=== PATIENT | female | born 1955 | race Caucasian/White ===

== ENCOUNTER → 2018-11-19 | Outpatient (CLI) | payer OTHER | END | disposition home or self-care (01) | LOC: LAB SHORT 19:15 → LAB 19:15 | PROVIDERS: Nurse Practitioner | DX: Z01.419 Encounter for gynecological examination (general) (routine) without abnormal findings (principal) | CPT/HCPCS: G0145 ==

== ENCOUNTER → 2018-12-02 | Outpatient (CLI) | payer OTHER | END | disposition home or self-care (01) | LOC: LAB SHORT 10:54 → PLD 10:54 | DX: L81.4 Other melanin hyperpigmentation (principal); L81.8 Other specified disorders of pigmentation | CPT/HCPCS: 88305 ==

== ENCOUNTER 2021-06-21 12:03 | Day surgery (SDC) | payer MEDICARE, OTHER ==
[2021-06-21] MEDS ORDERED: AMLO5 PO (12:56)
[2021-06-21] MEDS ORDERED: ASCO500 PO (12:56)
[2021-06-21] MEDS ORDERED: ELIQUIS5 M2 PO (12:56)
[2021-06-21] MEDS ORDERED: THERA-D2000 UNIT PO (12:57)
[2021-06-21] MEDS ORDERED: METO50ER PO (12:57)
[2021-06-21] MEDS ORDERED: HYDCHL25 PO (12:57)
[2021-06-21] MEDS ORDERED: EUTHYROX125 MCG PO (12:57)
[2021-06-21] MEDS ORDERED: VITAMIN B122500 MC1 PO (12:58)
[2021-06-21] MEDS ORDERED: ZINC15 PO (12:58)
[2021-06-21] MEDS ORDERED: TURMERIC500 M2 (12:58)
--- NOTE | 2021-06-21 13:15 | NUR ---
SEE PAPER MAR FOR MEDICATIONS GIVEN, AND PAPER SHEET FOR VS.
--- NOTE | 2021-06-21 14:41 | NUR ---
PT AOX4, DENIES ANY CP. PT REMAINS IN SINUS KARLA. PT STATES HER UNDERSTANDING OF DC AND SITE CARE INSTRUCTIONS AND DENIES ANY QUESTIONS OR CONCERNS PRIOR TO DC. IV DCD WITH CATH INTACT. EKG COMPLETED. PT TAKEN TO EXIT VIA WHEELCHAIR WHERE DAUGHTER WAS WAITING WITH CAR.
== END 2021-06-21 14:30 | disposition home or self-care (01) ==
LOC: MHTC 12:03
DX: I48.91 Unspecified atrial fibrillation (principal); I10 Essential (primary) hypertension; E78.5 Hyperlipidemia, unspecified; Z86.73 Personal history of transient ischemic attack (TIA), and cerebral infarction without residual deficits; E03.9 Hypothyroidism, unspecified; E66.9 Obesity, unspecified; Z68.30 Body mass index [BMI] 30.0-30.9, adult; Z79.01 Long term (current) use of anticoagulants
CPT/HCPCS: 92960; 93005; 93010; J2704; J7030

== ENCOUNTER 2021-07-26 08:33 | Day surgery (SDC) | payer MEDICARE, OTHER ==
[~2021-07-26] VITALS: Ht 162.6 cm; Wt 100.9 kg
[~2021-07-26 08:33] MED LIST: AMLO5 PO; ASCO500 PO; ELIQUIS5 M2 PO; EUTHYROX125 MCG PO; HYDCHL25 PO; METO50ER PO; THERA-D2000 UNIT PO; TURMERIC500 M2; VITAMIN B122500 MC1 PO; ZINC15 PO
[2021-07-26] MEDS ORDERED: DILT120 PO (08:54)
[2021-07-26] MEDS ORDERED: B COMPLEX WITH1 EACH PO (08:54)
--- NOTE | 2021-07-26 09:10 | NUR ---
DR LISA HERE WITH PT, GOING OVER CONSENTS
[2021-07-26] MEDS ORDERED: Flecainide Acet50 MG PO (09:34)
[2021-07-26] MEDS ORDERED: AMLO5 PO (09:34)
--- NOTE | 2021-07-26 10:22 | NUR ---
PT ALERT AND ORIENTED. TALKING WITH STAFF. REPEAT EKG DONE. FLECAINIDE 50 MG GIVEN TO PT. DISCHARGE INSTRUCTIONS REVIEWED WITH PT, VERBALIZES UNDERSTANDING. PT REMAINS IN A SINUS KARLA RHYTHM. SALINE LOCK REMOVED WITH CATHETER INTACT. PT TO PRIVATE VEHICLE PER W/C WITH ONE STAFF.
[2021-09-04] MEDS ORDERED: DILT120 PO (11:20)
[2021-09-05] MEDS ORDERED: EUTHYROX125 MCG PO (10:03)
[2021-09-05] MEDS ORDERED: TURMERIC500 M2 PO (10:05)
[2021-09-05] MEDS ORDERED: AMLO5 PO (10:06)
== END 2021-07-26 23:29 | disposition home or self-care (01) ==
LOC: MHTC 08:33
DX: I48.19 Other persistent atrial fibrillation (principal); R06.00 Dyspnea, unspecified; I10 Essential (primary) hypertension; E66.9 Obesity, unspecified; E03.9 Hypothyroidism, unspecified; R73.03 Prediabetes; Z86.73 Personal history of transient ischemic attack (TIA), and cerebral infarction without residual deficits; Z79.01 Long term (current) use of anticoagulants; Z88.0 Allergy status to penicillin; Z68.38 Body mass index [BMI] 38.0-38.9, adult
CPT/HCPCS: 92960; 93005; 93010; A9270; J2704; J7030

== ENCOUNTER 2021-11-21 06:03 | Day surgery (SDC) | payer MEDICARE, OTHER ==
[~2021-11-21] VITALS: Ht 162.6 cm; Wt 103.5 kg
[~2021-11-21 06:03] MED LIST changes: +B COMPLEX WITH1 EACH PO; +DILT120 PO; +Flecainide Acet50 MG PO; +TURMERIC500 M2 PO
[2021-11-21] MEDS ORDERED: DILTIAZEM 12HR120 M9 PO (09:27)
[2021-11-21] MEDS ORDERED: SOTO80 PO (10:56)
--- NOTE | 2021-11-21 14:37 | NUR ---
1005 PATIENT ARRIVE TO THE HEART CENTER THIS MORNING AND RAPID COVID TEST PERFORMED WHILE PATIENT IN THE WAITING ROOM. NEGATIVE RESULTS.
--- NOTE | 2021-11-21 14:38 | NUR ---
1037 PATIENT TAKEN TO PROCEDURE ROOM 207 AND PREPPED FOR CONSTANTINO/DCCV. PLACED ON THE MONITOR. PIV OBTAINED TO THE LEFT HAND. INTERVIEWED BY ANESTHESIA AND DR. ALLEN. MEDICATION RECONCILATION DONE. ECHO PERSONNEL AT THE BEDSIDE. DEFIB PADS PLACE ON THE PATIENT.
--- NOTE | 2021-11-21 14:38 | NUR ---
1023 EKG PERFORMED AND PATIENT NOTED TO BE IN AFIB.
--- NOTE | 2021-11-21 14:43 | NUR ---
SEE SEDATION RECORD FOR PROCEDURE.
--- NOTE | 2021-11-21 14:44 | NUR ---
1135 PATIENT HAD 8 SECOND PAUSE AFTER DCCV WITH CONVERSION FROM AFIB TO SINUS KARLA TO HR OF 38. DR. ALLEN AND DR. SAVAGE AT THE BEDSIDE. PATIENT WAS MOVED TO THE CATHLAB FOR RECOVERY. 1141 EKG WAS PERFORMED, PATIENT WAS AFIB. REPEAT EKG PERFORM AT 1158, AFIB. DR. ALLEN DECIDED TO ATTEMPT DCCV AGAIN.
--- NOTE | 2021-11-21 14:50 | NUR ---
1215 PATIENT WAS MOVED TO THE [facility]. SEE [facility] REPORT. ANESTHESIA DR. LISA AND DR. ALLEN ATTENDED AND PATIEN WAS DCCV X 4 BACK TO SINUS RHYTHM. PATIENT WAS THEN MOVED TO RECOVERY IN THE HEART CENTER AND RECOVERED UNTIL DISCHARGED HOME.
--- NOTE | 2021-11-21 14:52 | NUR ---
1415 PATIENT WAS SITTING UP ON THE SIDE OF THE BED EATING LUNCH. VVS. PATINET DRESSED AND PIV WAS DISCONTINUED, CATH TIP INTACT, PRESSURE DRESSING APPLIED. REVIEWED DISCHARGE INSTRUCTIONS WITH THE PATIENT AND PATIENT WILL HAVE AN EKG ON Friday11/30/2021 AT 1230 IN THE OFFICE. PATIENT DISCHARGED HOME VIW WHEELCHAIR
== END 2021-11-21 12:30 | disposition home or self-care (01) ==
LOC: MHTC 06:03 → ORSCSDS 06:13 → MHTC 09:26 → ORSCSDS 11:00 → ORD 11:00 → MHTC 12:30
DX: I48.19 Other persistent atrial fibrillation (principal); I10 Essential (primary) hypertension; E78.5 Hyperlipidemia, unspecified; E03.9 Hypothyroidism, unspecified; F41.9 Anxiety disorder, unspecified; E66.9 Obesity, unspecified; G89.29 Other chronic pain; M25.569 Pain in unspecified knee; Z68.39 Body mass index [BMI] 39.0-39.9, adult; Z79.01 Long term (current) use of anticoagulants; Z86.73 Personal history of transient ischemic attack (TIA), and cerebral infarction without residual deficits; Z88.0 Allergy status to penicillin
CPT/HCPCS: 92960; 93005; 93010; 93312; 93325; A9270; J2704; J7030

== ENCOUNTER 2022-03-27 10:44 | Day surgery (SDC) | payer MEDICARE, OTHER ==
[~2022-03-27] VITALS: Ht 162.6 cm; Wt 95.0 kg
[~2022-03-27 10:44] MED LIST changes: +DILTIAZEM 12HR120 M9 PO; +LOSA25 PO; +SOTO80 PO
--- NOTE | 2022-03-27 12:37 | NUR ---
PT STILL IN AFIB AFTER CARDIOVERSION. DENIES SYMPTOMS. PT GIVEN DC INSTRUCTIONS AND VERBALIZED UNDERSTANDING. IV OUT. PT CHANGED INTO CLOTHES AND TAKEN TO [facility] VIA WC. DAUGHTER EVELIA TO TAKE PT HOME.
== END 2022-03-27 23:11 | disposition home or self-care (01) ==
LOC: MHTC 10:44
DX: I48.19 Other persistent atrial fibrillation (principal); E78.5 Hyperlipidemia, unspecified; I10 Essential (primary) hypertension; E66.9 Obesity, unspecified; R73.01 Impaired fasting glucose; Z86.73 Personal history of transient ischemic attack (TIA), and cerebral infarction without residual deficits; Z88.0 Allergy status to penicillin; E03.9 Hypothyroidism, unspecified; Z68.36 Body mass index [BMI] 36.0-36.9, adult
CPT/HCPCS: 92960; J2704; J7030

== ENCOUNTER → 2022-06-03 | Outpatient (CLI) | payer MEDICARE, OTHER ==
[2022-06-04 11:09] LABS: Candida species (DNA Probe) Negative (NEGATIVE); G. vaginalis (DNA Probe) Negative (NEGATIVE); T. vaginalis (DNA Probe) Negative (NEGATIVE)
[2022-06-05 07:10] LABS: CHLAMYDIA BY NAA Negative (Negative); GONOCOCCUS BY NAA Negative (Negative); TRICH VAG BY NAA Negative (Negative)
== END | disposition home or self-care (01) ==
LOC: RAD SHORT 10:20
PROVIDERS: Family Medicine
DX: Z01.419 Encounter for gynecological examination (general) (routine) without abnormal findings (principal)
CPT/HCPCS: 87480; 87491; 87510; 87591; 87660; 87661

== ENCOUNTER → 2022-09-13 | Outpatient (CLI) | payer MEDICARE, OTHER ==
[2022-09-13 19:38] LABS: Calcium Oxalate Crystals Many /hpf
[2022-09-13 19:40] LABS: Bacteria Many /hpf; Squamous Epithelial Cells Few /hpf (Few); Transitional Epithelial Cells Few /hpf (0-Rare)
== END | disposition home or self-care (01) ==
LOC: LAB 15:00 → LAB SHORT 15:00
PROVIDERS: Family Medicine
DX: R10.31 Right lower quadrant pain (principal)
CPT/HCPCS: 81015; 87086; 87147

== ENCOUNTER → 2022-10-22 | Outpatient (CLI) | payer MEDICARE, OTHER | END | disposition home or self-care (01) | LOC: LAB 15:30 → LAB SHORT 15:30 | DX: N39.0 Urinary tract infection, site not specified (principal) | CPT/HCPCS: 87086; 87147 ==

== ENCOUNTER → 2023-07-07 | Outpatient (CLI) | payer MEDICARE, OTHER | END | disposition home or self-care (01) | LOC: LAB SHORT 12:54 | DX: R35.0 Frequency of micturition (principal) | CPT/HCPCS: 87086 ==